=== PATIENT | female | born 1965 | race Caucasian/White ===

== ENCOUNTER 2022-12-18 15:39 | Outpatient (CLI) | payer BC | END 2022-12-18 15:40 | disposition home or self-care (01) | LOC: RAD 15:39 | PROVIDERS: ATTEND Student in an Organized Health Care Education/Training Program | DX: M25.512 Pain in left shoulder (principal); S43.015A Anterior dislocation of left humerus, initial encounter ==

== ENCOUNTER 2022-12-19 12:26 | Emergency (ER) | payer BC ==
[2022-12-19] MEDS ORDERED: Ondansetron PF 4 MG/2 ML Vial ONE (14:01)
[2022-12-19] MEDS ORDERED: Ketamine 50 MG/ML (10ML VIAL) ONE (14:01)
== END 2022-12-19 15:38 | disposition home or self-care (01) ==
LOC: ERS 12:26
DX: S43.005A Unspecified dislocation of left shoulder joint, initial encounter (principal); E11.9 Type 2 diabetes mellitus without complications; I10 Essential (primary) hypertension; E78.5 Hyperlipidemia, unspecified; W18.30XA Fall on same level, unspecified, initial encounter
CPT/HCPCS: 23650; 96374; 99156; J2405